=== PATIENT | male | born 1955 | race Caucasian/White ===

== ENCOUNTER 2019-09-05 10:16 | Inpatient (IN) | payer MEDICARE, OTHER ==
[~2019-09-05] VITALS: Ht 188 cm; Wt 104.3 kg
[2019-09-05 05:00] VITALS: BP 104/72
--- NOTE | 2019-09-05 10:20 | NUR ---
pt bib private ambulance on 5150 hold got GD and DTO, pt already agitated, non-cooperative, refusing to be treated. pt holding his own cane in a threatening gestures. tried to explain the procedure and deescalate the situation.
[2019-09-05] MEDS ORDERED: diphenhydrAMINE 50 MG/1 ML VIAL ONE (10:25)
[2019-09-05] MEDS ORDERED: HALOPERIDOL LACTATE 5 MG/1 ML VIAL ONE (10:26)
[2019-09-05] MEDS ORDERED: LORAZEPAM 2 MG/1 ML VIAL ONE (10:26)
[2019-09-05] MEDS ORDERED: HALOPERIDOL LACTATE 5 MG/1 ML VIAL IM ONE (10:30)
[2019-09-05] MEDS ORDERED: LORAZEPAM 2 MG/1 ML VIAL IM ONE (10:30)
[2019-09-05] MEDS ORDERED: diphenhydrAMINE 50 MG/1 ML VIAL IM ONE (10:30)
--- NOTE | 2019-09-05 10:33 | NUR ---
CALLED CODE PEDRO. Addendum: 09/05/19 at 1110 by CHIRAG DUE TO PT COMBATIVE BEHAVIOR, THREATENING LANGUAGE.
[2019-09-05 10:50] LABS: BASOPHILS # (AUTO) 0.1 K/uL (0.0-8.0); BASOPHILS % (AUTO) 0.8 % (0.0-2.0); EOSINOPHILS # (AUTO) 0.1 K/uL (0.0-0.7); EOSINOPHILS % (AUTO) 1.4 % (0.0-7.0); HEMATOCRIT 54.1 % (36.7-47.1); HEMOGLOBIN 18.1 g/dL (12.5-16.3); LYMPHOCYTES # (AUTO) 2.8 K/uL (20.0-40.0); LYMPHOCYTES % (AUTO) 30.5 % (20.5-51.5); MEAN CORPUSCULAR HEMOGLOBIN 32.2 uug (23.8-33.4); MEAN CORPUSCULAR HGB CONC 33 g/dL (32.5-36.3); MEAN CORPUSCULAR VOLUME 96.5 fL (73.0-96.2); MONOCYTES # (AUTO) 1.3 K/uL (2.0-10.0); MONOCYTES % (AUTO) 14.4 % (0.0-11.0); NEUTROPHILS # (AUTO) 4.9 K/uL (1.8-8.9); NEUTROPHILS % (AUTO) 52.9 % (38.5-71.5); PLATELET COUNT (AUTO) 226 K/uL (152-348); RED BLOOD CELL COUNT(AUTO) 5.61 MIL/uL (4.06-5.63); WHITE BLOOD COUNT (AUTO) 9.3 K/uL (3.6-10.2)
[2019-09-05 10:58] LABS: CARBON DIOXIDE 27 mmol/L (21-32); CHLORIDE 109 mmol/L (98-107); CREATININE 1.2 mg/dL (0.6-1.3); GLUCOSE 121 mg/dL (74-106); POTASSIUM 4.4 mmol/L (3.5-5.1); UREA NITROGEN, BLOOD 16 mg/dL (7-18)
[2019-09-05 11:00] LABS: ETHANOL < 3 MG/DL (0-0)
--- NOTE | 2019-09-05 11:00 | NUR ---
PT ALLOWED THAT EKG, VENIPUNCTURE AND VS TO BE DONE.
--- NOTE | 2019-09-05 11:02 | NUR ---
CODE PEDRO CLEARED. CLINICAL REVIEWER AT BEDSIDE FOR DIRECT OBSERVATION.
[2019-09-05 11:04] LABS: ALANINE AMINOTRANSFERASE 29 U/L (16-63); ALKALINE PHOSPHATASE 98 U/L (50-136); ASPARTATE AMINOTRANSFERASE 26 U/L (15-37); BILIRUBIN,DIRECT 0.2 mg/dL (0.0-0.2); TOTAL PROTEIN, SERUM 7.7 g/dL (6.4-8.2)
[2019-09-05 11:05] LABS: LYMPHOCYTES % (MANUAL) 30 % (20-40); MONOCYTES % (MANUAL) 14 % (2-10); NEUTROPHILS % (MANUAL) 56 % (42-75)
[2019-09-05 11:06] LABS: ACETAMINOPHEN < 2.0 ug/mL (10-30)
--- NOTE | 2019-09-05 11:09 | NUR ---
PT REQUESTING SANDWICH. HOSPITAL SANDWICH AND JUICE PROVIDED.
[2019-09-05 11:12] LABS: THYROID STIMULATING HORMONE 0.886 mIU/mL (0.358-3.740)
--- NOTE | 2019-09-05 11:37 | NUR ---
PT HOLDING AN OBJECT IN HIS POCKET. REFUSES TO TO TAKE HIS CLOTHING OUT AND GO TO HOSPITAL GOWN. CALLED SELWYN PEDRO. PT IMMEDIATELY REMOVED HIS BELONGINGS, PLACED IN THE HOSPITAL BAG BY FOOD OPERATIONS MANAGER AT BEDSIDE WITHOUT ANY CONFRONTATION. AND CONSENTED FOR MEDICATION TO BE GIVEN TO MAKE HIM CALM AND COMFORTABLE.
--- NOTE | 2019-09-05 12:19 | NUR ---
PT RESTING, AROUSABLE, BREATHING NORMALLY, NO SIGN OF DISTRESS AT THIS POINT. SECURITY AT BEDISDE FOR ONE TO ONE.
--- NOTE | 2019-09-05 12:35 | NUR ---
APPLE JUICE PROVIDED PER PT REQUEST.
--- NOTE | 2019-09-05 12:46 | NUR ---
TRNASFERED PT TO FLOOR IN STABLE CONDITION.
[2019-09-05] MEDS ORDERED: LORAZEPAM 0.5 MG TABLET PO PRN (13:15)
[2019-09-05] MEDS ORDERED: MAG HYDROX/AL HYDROX/SIMETH 30 ML LIQUID UDC PO PRN (13:15)
[2019-09-05] MEDS ORDERED: ACETAMINOPHEN 325 MG TABLET PO PRN (13:15)
[2019-09-05] MEDS ORDERED: TEMAZEPAM 7.5 MG CAPSULE PO PRN (13:15)
[2019-09-05] MEDS ORDERED: BLOOD SUGAR DIAGNOSTIC 1 EACH STRIP VI ONE (13:15)
[2019-09-05] MEDS ORDERED: MAGNESIUM HYDROXIDE 30 ML LIQUID UDC PO PRN (13:15)
[2019-09-05] MEDS ORDERED: IVERMECTIN 3 MG TABLET PO ONE ×2 (13:30→14:00)
[2019-09-05] MEDS ORDERED: PERMETHRIN 5% CREAM 60 GM TUBE TP ONE (13:30)
--- NOTE | 2019-09-05 13:34 | NUR ---
RECEIVED PT FROM ER. NO ACUTE DISTRESS OR SOB. PT IS 5250 14 DAY HOLD. PT HAS A 1:1 SITTER AT BEDSIDE FOR SAFETY. BED LOCKED AND IN LOW POSITION. PT RESTING COMFORTABLY. PLEASANT AND COOPERATIVE. WILL CONTINUE TO MONITOR FOR SAFETY AND COMFORT.
[2019-09-05 13:57] VITALS: BP 117/66
[2019-09-05] MEDS: LISINOPRIL 5 MG TABLET PO SCH (13:58)
--- NOTE | 2019-09-05 15:00 | NUR ---
PT REFUSES ADMISSION INTERVIEW AT THIS TIME. PT STATES HE WISHES TO REST. BELONGINGS DONE BY SITTER. WILL CONTINUE TO MONITOR FOR SAFETY AND COMFORT.
--- NOTE | 2019-09-05 17:00 | NUR ---
PT REFUSES ADMISSION INTERVIEW AT THIS TIME. RESTING COMFORTABLY. PT WISHES TO REST. 1:1 SITTER AT BEDSIDE FOR SAFETY. MHU AWARE OF PT'S REFUSAL TO ADMISSION PROCESS. WILL ENDORSE TO INCOMING SHIFT RN TO CONTINUE ADMISSION PROCESS ON THEIR SHIFT.
[2019-09-05] MEDS ORDERED: OLANZAPINE 2.5 MG TABLET PO SCH (19:25)
[2019-09-05 19:30] VITALS: BP 118/68
--- NOTE | 2019-09-05 21:00 | NUR ---
patient refused skin check
[2019-09-05] MEDS: OLANZAPINE ZYDIS 5 MG TAB.RAPDIS PO SCH (21:06)
--- NOTE | 2019-09-06 06:17 | NUR ---
patient slept intermittently. v/s stable and no signs of acute distress. safety and comfort measures provided. all needs met. will continue to monitor and endorse to morning shift.
--- NOTE | 2019-09-06 07:30 | NUR ---
SLEEPING COMFORTABLE. NO RESPIRATORY DISTRESS NOTED.
--- NOTE | 2019-09-06 08:30 | NUR ---
HOB UP, APPETITE GOOD, GLAD OF BREAKFAST, EATING WELL.
[2019-09-06] MEDS: LISINOPRIL 5 MG TABLET PO SCH ×3 (08:40→09:00)
--- NOTE | 2019-09-06 09:00 | NUR ---
REFUSED BLOOD PRESSURE MED, STATED" DOESNT NEED IT. I AM A PENTECOSTALISM MAN AND IM NEXT TO GOD, GESTURING INDEX AND MIDDLE FINGER TOGETHER. GOD KNOWS AND SEE EVERYTHING SO IT PEOPLE THAT LIVES WITH ME ARE NOT NICE THEN I CANT ACCEPT THAT. " LULU MADE AWARE OF PLAN OF CARE ,MED INTAKE, STILL REFUSED. WANTED TO CONTINUE SLEEPING PER PATIENT. PICTURE TAKEN AND LEFT TO SLEEP. NO ACUTE DISTRESS NOTED.
[2019-09-06 11:56] VITALS: BP 126/78
[2019-09-06 16:00] VITALS: BP 127/76
--- NOTE | 2019-09-06 16:56 | NUR ---
[facility] number [phone]
--- NOTE | 2019-09-06 16:56 | NUR ---
ivon red called , supportive of patient care
--- NOTE | 2019-09-06 17:49 | NUR ---
up for dinner then back to sleep
--- NOTE | 2019-09-06 18:56 | NUR ---
no outburst for the shift, no agitation, calm , slept most of the shift. brp prn.
[2019-09-06 20:00] VITALS: BP 124/57
[2019-09-06] MEDS: OLANZAPINE ZYDIS 5 MG TAB.RAPDIS PO SCH (20:03)
--- NOTE | 2019-09-07 07:25 | NUR ---
PATIENT IN BED WITH 1:1 SITTER FOR SAFETY, NO SOB AND NO C/O PAIN NOTED AT THIS TIME, NO IV PATIENT REFUSED IV. SAFETY AND COMFORT PROVIDED. WILL CONTINUE TO MONITOR.
[2019-09-07 08:00] VITALS: BP 141/90
[2019-09-07] MEDS: LISINOPRIL 5 MG TABLET PO SCH ×2 (08:16→08:34)
[2019-09-07 16:20] VITALS: BP 151/84
--- NOTE | 2019-09-07 18:41 | NUR ---
PATIENT IN BED WITH 1:1 SITTER FOR SAFETY, NO SOB AND NO C/O PAIN NOTED AT THIS TIME. SAFETY AND COMFORT PROVIDED. CONSUMED 100% DINNER. WILL CONTINUE TO MONITOR.
[2019-09-07 19:30] VITALS: BP 120/70
--- NOTE | 2019-09-07 19:30 | NUR ---
patient lying in bed comfortably. 1:1 sitter at bedside for safety and legal hold. bed in lowest position, side rails up x2, bed alarm on. appropriately answers questions and cooperative at this time. No SI/HI noted at this time. will continue to monitor.
[2019-09-07] MEDS: OLANZAPINE ZYDIS 5 MG TAB.RAPDIS PO SCH (20:47)
--- NOTE | 2019-09-08 07:35 | NUR ---
PATIENT IN BED RESTING WITH 1:1 SITTER AT BED SIDE FOR SAFETY AND LEGAL HOLD. DENIES SI/HI AND DENIES AH/VH . PATIENT COOPERATIVE. WILL CONTINUE TO MONITOR.
[2019-09-08 08:00] VITALS: BP 117/85
[2019-09-08] MEDS: LISINOPRIL 5 MG TABLET PO SCH (08:57)
[2019-09-08 12:00] VITALS: BP 121/72
--- NOTE | 2019-09-08 14:28 | NUR ---
Social Work Initial Discharge Note: Patient currently resides at [facility] Address: [address], [place] [address] ([phone]). SHANNAN spoke with Charleen, admin coordinator at the facility who stated they will not be accepting the patient back upon discharge. SHANNAN informed that upon patient admissions to the hospital they mutually agree to accept the patient back. Charleen stated she never spoke with anyone, however, they has requested our Crisis team to do an evaluation. Charleen stated that they served the patient with a 30day eviction notice "one month ago". This functional tester typewriters requested a copy to be faxed. Charleen wrote down this functional tester typewriters's fax number and stated she will send a copy.
--- NOTE | 2019-09-08 14:41 | NUR ---
Social Work Firearms Report ([employer]): Hair Baler completed and submitted a [employer] firearms report for 5150 danger to others and grave disability certification. A copy of report has been placed in patient chart.
[2019-09-08 16:00] VITALS: BP 122/78
--- NOTE | 2019-09-08 18:32 | NUR ---
PATIENT IN BED WATCHING TV WITH 1:1 SITTER AT BEDSIDE FOR SAFETY AND LEGAL HOLD. DENIES SI/HI AND DENIES AH/VH. PATIENT IS COOPERATIVE AND COMPLIANT WITH DIET AND MEDS. WILL CONTINUE TO MONITOR.
[2019-09-08] MEDS: OLANZAPINE ZYDIS 5 MG TAB.RAPDIS PO SCH (20:24)
[2019-09-08 21:34] VITALS: BP 119/77
[2019-09-09] MEDS ORDERED: LORAZEPAM 0.5 MG TABLET PO PRN ×2 (02:30→03:00)
[2019-09-09] MEDS ORDERED: TEMAZEPAM 7.5 MG CAPSULE PO PRN (02:30)
[2019-09-09] MEDS ORDERED: MAG HYDROX/AL HYDROX/SIMETH 30 ML LIQUID UDC PO PRN ×2 (02:30→03:00)
[2019-09-09] MEDS ORDERED: ACETAMINOPHEN 325 MG TABLET PO PRN ×2 (02:30→03:00)
[2019-09-09] MEDS ORDERED: MAGNESIUM HYDROXIDE 30 ML LIQUID UDC PO PRN ×2 (02:30→03:00)
[2019-09-09 08:30] VITALS: BP 129/80
[2019-09-09] MEDS: LISINOPRIL 5 MG TABLET PO SCH (09:05)
[2019-09-09 11:58] VITALS: BP 116/68
[2019-09-09 16:31] VITALS: BP 142/56
[2019-09-09 16:33] VITALS: BP 109/73
--- NOTE | 2019-09-09 20:00 | NUR ---
AWAKE,ALERT COOPERATIVE TOOK MEDICATIONS RESTING COMFORTABLY, SITTER AT BEDSIDE
[2019-09-09] MEDS: OLANZAPINE ZYDIS 5 MG TAB.RAPDIS PO SCH (20:05)
[2019-09-09 20:11] VITALS: BP 115/80
--- NOTE | 2019-09-09 20:57 | NUR ---
skin will be free from rashes Addendum: 09/09/19 at 2058 by KATHERINE ACEVEDO RN Amended: Links added.
--- NOTE | 2019-09-10 06:05 | NUR ---
SLEPT 8 HOURS
[2019-09-10 07:30] VITALS: BP 123/68
[2019-09-10 07:57] VITALS: BP 123/68
[2019-09-10] MEDS: LISINOPRIL 5 MG TABLET PO SCH (08:03)
--- NOTE | 2019-09-10 08:44 | NUR ---
Social Work Discharge Planning: Hotel Supplies Salesperson faxed patient's referral packet including: History and Physical, Consultation, Progress Notes, Medication List and Labs to the following facilities for review and possible alf placement: [facility] attention to [facility] attention to [facility] Addendum: 09/11/19 at 0857 by JEANCARLOS BERNARD Patient is accepted to [facility].
[2019-09-10] MEDS ORDERED: PERMETHRIN 5% CREAM 60 GM TUBE TP ONE (10:45)
[2019-09-10 16:09] VITALS: BP 135/90
--- NOTE | 2019-09-10 19:20 | NUR ---
RECEIVED PT IN NO ACUTE DISTRESS. IV INTACT. PT PLEASANT WHEN APPROACH. 1:1 SITTER FOR SAFETY.SAFETY AND COMFORT PROVIDED. WILL CONTINUE TO MONITOR.
[2019-09-10 20:03] VITALS: BP 118/71
[2019-09-10] MEDS: OLANZAPINE ZYDIS 5 MG TAB.RAPDIS PO SCH (20:38)
--- NOTE | 2019-09-11 06:15 | NUR ---
PT SLEPT INTERMITTENTLY. PT IN NO ACUTE DISTRESS. IV INTACT. PRESCRIBED MEDICATION GIVEN AND PT TOLERATED IT WELL. SITTER AT BEDSIDE FOR SAFETY.SAFETY AND COMFORT PROVIDED. WILL ENDORSE TO INCOMING NURSE FOR CONTINUITY OF CARE.
--- NOTE | 2019-09-11 06:22 | NUR ---
PT SLEPT 7 H. PT IN NO ACUTE DISTRESS. 1:1 SITTER FOR SAFETY. WILL ENDORSE TO INCOMING NURSE.
[2019-09-11 07:16] VITALS: BP 129/72
--- NOTE | 2019-09-11 08:00 | NUR ---
RECEIVED PT RESTING COMFORTABLY. NO RESPIRATORY DISTRESS NOTED. NO ACUTE DISTRESS NOTED. BED LOCKED AND IN LOW POSITION. CALL LIGHT WITHIN REACH. PT HAS A 1:1 SITTER FOR SAFETY. WILL CONTINUE TO MONITOR FOR SAFETY AND COMFORT.
[2019-09-11] MEDS: LISINOPRIL 5 MG TABLET PO SCH (08:38)
--- NOTE | 2019-09-11 08:57 | NUR ---
Social Work Discharge Planning: Producer Assistant faxed patient's referral packet including: History and Physical, Consultation, Progress Notes, Medication List and Labs to [facility] ( ; fax: [phone]).
--- NOTE | 2019-09-11 09:52 | NUR ---
Social Work Brief Substance Abuse Intervention: Patient was provided with a brief substance abuse intervention and referred to [facility] ([facility]) ([phone]), [facility] , [facility] , and [facility] .
[2019-09-11 15:53] VITALS: BP 149/88
--- NOTE | 2019-09-11 18:15 | NUR ---
PATIENT IN BED WATCHING TV WITH 1:1 SITTER AT BEDSIDE FOR SAFETY. DENIES SI/HI AND DENIES AH/VH. PATIENT IS COOPERATIVE AND COMPLIANT WITH DIET AND MEDS. WILL GIVE REPORT ACCORDINGLY.
--- NOTE | 2019-09-11 19:30 | NUR ---
RECEIVED PT AWAKE, ALERT AND ORIENTEDX3. 1:1 SITTER FOR SAFETY. PT IN NO ACUTE DISTRESS. PLEASANT WHEN APPROACH. SAFETY AND COMFORT PROVIDED. ALL NEEDS ARE MET. WILL CONTINUE TO MONITOR.
[2019-09-11] MEDS: OLANZAPINE ZYDIS 5 MG TAB.RAPDIS PO SCH (20:36)
[2019-09-11 20:42] VITALS: BP 148/90
--- NOTE | 2019-09-12 06:00 | NUR ---
PT SLEPT 7 HOURS. PT IN NO ACUTE DISTRESS. 1:1 SITTER FOR SAFETY. PRESCRIBED MEDICATION GIVEN AND PT TOLERATED IT WELL. SAFETY AND COMFORT PROVIDED. ALL NEEDS ARE MET. WILL ENDORSE TO INCOMING NURSE FOR CONTINUITY OF CARE.
[2019-09-12 07:30] VITALS: BP 108/72
[2019-09-12 08:43] VITALS: BP 130/75
[2019-09-12] MEDS: LISINOPRIL 5 MG TABLET PO SCH (08:43)
--- NOTE | 2019-09-12 09:39 | NUR ---
Social Work Discharge Note: Patient will be discharged to [facility] [address] [place] [id number] ([phone]). Patient will be provided transportation at 1:00pm via ambulance. Spoke with Katherine the Admin Coordinator at the facility who states they are ready to accept the patient today. Patient is aware and agreeable with discharge plans. Patient is alert and oriented x3-4, is unable to plan for self-care however is willing to accept care at the facility. Patient denies any suicidal or homicidal ideation. Patient will follow-up at the facility with Psychiatrist Dr. Gunter and Box Finisher Dr. De Jesus. Coat Finisher faxed discharge packet to [facility] (fax: [phone]). Patient presents with calm mood and euthymic affect and shared she is looking forward to going to this new facility. Patients has no family or supportive contacts to notify of discharge plans. Patient was provided with a brief substance abuse intervention and referred to [facility] , [facility] , and [facility] . For smoking cessation, patient was referred to [employer] 800-LUNGUSA and [employer] [phone]. Patient was also referred to the Nicotine Anonymous telephone meeting on Sunday at 6:15pm (pacific time).
--- NOTE | 2019-09-12 16:00 | NUR ---
pt. discharged via ambulance. ID band removed. all belongings with pt. pt. signed all discharge paperwork. pt. in stable condition. photos taken in chart.
--- NOTE | 2019-09-16 10:45 | NUR ---
Social Work Substance Abuse Follow Up Intervention: Substance abuse follow up intervention excluded due to patient being discharged to a intermediate facility.
== END 2019-09-12 15:40 | DRG 885 ==
LOC: ER 10:28 → GPS 11:45 → GPSOV3 12:38
PROVIDERS: ADMIT Psychiatry & Neurology Psychiatry; ATTEND Nurse Practitioner Acute Care
DX: F29 Unspecified psychosis not due to a substance or known physiological condition (principal); I11.0 Hypertensive heart disease with heart failure; E87.0 Hyperosmolality and hypernatremia; I50.22 Chronic systolic (congestive) heart failure; E78.5 Hyperlipidemia, unspecified; I25.10 Atherosclerotic heart disease of native coronary artery without angina pectoris; N40.0 Benign prostatic hyperplasia without lower urinary tract symptoms; B86 Scabies; F41.1 Generalized anxiety disorder; Z95.1 Presence of aortocoronary bypass graft; R73.9 Hyperglycemia, unspecified; Z95.5 Presence of coronary angioplasty implant and graft
CPT/HCPCS: 36415; 70030-TC; 84443; 85025; 93005; A4663; G0480; G0480-TC; J1200; J1630; J2060